=== PATIENT | male | born 1965 | race Caucasian/White ===

== ENCOUNTER 2016-12-02 12:52 | Outpatient (CLI) | payer OTHER ==
--- NOTE | 2016-12-02 15:43 | CT ---
NONCONTRAST CT OF THE CERVICAL SPINE 12/02/16 HISTORY: History of cervical spinal fracture. COMPARISON: Prior exam dated 10/09/16. FINDINGS: There is a small mucous retention cyst within the right maxillary sinus. Mastoid air cells are clear . Irregularity involving the right C5 lamina is unchanged from the comparison CT dated 10/09/16. No christian reciable edema was noted within this region on the comparison MRI of the cervical spine dated 7. This is likely reflective of either chronic injury or possibly exuberant osteophytosis from the a djacent C5-6 facet complex. No acute change is evident. The lung apices are clear. There is advanced disc degenerative disease at C6-7. The broad based disc osteophyte complex does induce at least mild central canal narrowing and moderate left neural julia inal narrowing. IMPRESSION: No appreciable change seen involving the cortical irregularity involving the right C5 lamina. Suspec payal on the prior CT to reflect a fracture; however, on a subsequent MR examination dated 10/09/16, th ere was no appreciable edema noted within this region. The cortical irregularity involving the C5 la adolfo is stable. This may reflect sequela of remote trauma or possibly exuberant osteophyte formation from the adjacent C5-6 articular pillar. POS: [facility]
== END 2016-12-02 12:53 | disposition home or self-care (01) ==
LOC: MADCT 12:52
PROVIDERS: ATTEND Neurological Surgery
DX: S12.9XXA Fracture of neck, unspecified, initial encounter (principal)
CPT/HCPCS: 72125

== ENCOUNTER 2018-02-28 10:08 | Emergency (ER) | payer OTHER ==
[~2018-02-28 10:08] MED LIST: Iopamidol 370 76% 100 ML VIAL ONE
[2018-02-28 10:33] LABS: #Basophils 0.1 thou/uL (0.0-0.2); #Lymphocytes 2.4 thou/uL (1.20-3.40); #Monocytes 0.4 thou/uL (0.11-0.59); %Basophils 1.4 % (0.0-1.0); %Eosinophils 12.5 % (0.0-10.0); %Lymphocytes 30.6 % (21.0-51.0); %Neutrophils 50.6 % (42.0-75.0); Hemoglobin 13.6 g/dL (14.0-18.0); Mean Corpuscular HGB CONC 34.5 g/dL (32.0-36.0); Mean Corpuscular Hemoglobin 30.1 pg (27.0-31.0); Mean Corpuscular Volume 87.2 fL (78.0-98.0); Mean Platelet Volume 7.4 fL (7.4-10.4); Platelet Count 245 thou/uL (130-400); RBC Distribution Width 10.8 % (11.5-14.5); Red Blood Cell (RBC) Count 4.54 mill/uL (4.70-6.10)
--- NOTE | 2018-02-28 10:52 | RAD ---
RADIOGRAPH CHEST 2 VIEWS: HISTORY: 52-year-old male with cough. FINDINGS: There is no air space density, pulmonary edema, pleural effusion, pneumothorax, or cardiomegaly. IMPRESSION: No acute cardiopulmonary findings. jn [] POS: [facility]
[2018-02-28 10:54] LABS: ALT (SGPT) 23 U/L (8-55); AST (SGOT) 16 U/L (5-34); Albumin 3.9 g/dL (3.5-5.0); Alkaline Phosphatase 38 U/L (40-150); Anion Gap 14 mmol/L (10-20); BUN (Urea Nitrogen) 14 mg/dL (8.4-25.7); Bilirubin, Total 0.5 mg/dL (0.2-1.2); Calc. Creatinine Clearance 0 mL/min (70-130); Calcium 8.8 mg/dL (7.8-10.44); Carbon Dioxide 22 mmol/L (22-29); Chloride 106 mmol/L (98-107); Estimated GFR-MDRD Greater than 90; Globulin 2.8 g/dL (2.4-3.5); Glucose 133 mg/dL (70-105); Potassium 3.8 mmol/L (3.5-5.1); Protein, Total 6.7 g/dL (6.0-8.3); Sodium 138 mmol/L (136-145); Troponin I Less than 0.010 ng/mL (< 0.028)
[2018-02-28 11:37] LABS: Bilirubin Negative (Negative); Blood, Urine Negative (Negative); Clarity Clear (Clear); Glucose, Urine (Dipstick) Negative (Negative); Leukocyte Negative (Negative); Nitrite Negative (Negative); Protein, Urine (Dipstick) Negative (Neg-Trace); Specific Gravity, Urine 1.025 (1.005-1.030); Urobilinogen 0.2 mg/dL (0.2-1.0)
--- NOTE | 2018-02-28 13:05 | CT ---
CT ANGIO OF CHEST WITH CONTRAST: Multiple axial tomograms were obtained through the chest with IV enhancement following pulmonary ronda o protocol with multiplanar reconstruction and 3D post processing. INDICATION: Syncope. Coughing with syncope. Elevated D-dimer. FINDINGS: Pulmonary arteries show adequate opacification. No evidence of pulmonary embolus identified. Thorac ic aorta is unremarkable. No dissection. Lung fierro are clear. No infiltrate. Mediastinum unremarkable. Images through the upper abdomen u nremarkable. IMPRESSION: 1. No evidence of pulmonary embolus. 2. No acute lung process identified. POS: [facility]
== END 2018-02-28 12:38 | disposition short-term general hospital (02) ==
LOC: MADERS 10:08
DX: R55 Syncope and collapse (principal); R74.0 Nonspecific elevation of levels of transaminase and lactic acid dehydrogenase [LDH]; E11.9 Type 2 diabetes mellitus without complications; E78.5 Hyperlipidemia, unspecified; I10 Essential (primary) hypertension
CPT/HCPCS: 36415; 36416; 71046; 71275; 80053; 81003; 82553; 83605; 83880; 84484; 85025; 85379; 93005; 94760

== ENCOUNTER 2018-03-25 09:01 | Emergency (ER) | payer OTHER ==
--- NOTE | 2018-03-25 10:36 | CT ---
NONCONTRAST CT HEAD: DATE: 03/25/18. HISTORY: Head injury. COMPARISON: 10/09/16. FINDINGS: There is no evidence of a hemorrhage, acute infarction, mass effect, or midline shift. Ventricular s ystem is normal in size, shape, and position. There is mucous retention cyst again seen in the right maxillary antrum. Mastoid air cells are clear. No calvarial fracture is identified. IMPRESSION: No acute intracranial abnormality is demonstrated. POS: [facility]
--- NOTE | 2018-03-25 10:38 | CT ---
CT CERVICAL SPINE WITHOUT CONTRAST: HISTORY: Injury. Pain. COMPARISON: 12/02/16. FINDINGS: No craniocervical dissociation. Lateral masses of C1 and C2 as well as the facets have appropriate a rticulation. Intact odontoid process. Cervical vertebral body height is maintained. There is no fracture. No malalignment on the sagittal reformatted images. There is moderate degenerative disk disease at C6-C7. There is associated mode rate central canal stenosis and severe left foraminal narrowing. Evaluation of the contents of the c entral canal stenosis and neural foramen are limited by technique. There is no prevertebral soft tissue swelling. Visualized soft tissue neck structures, upper mediast inum, and lung apices are unremarkable. IMPRESSION: 1. No cervical spine fracture. 2. Stable degenerative change at C6-C7. POS: [facility]
--- NOTE | 2018-03-25 10:42 | CT ---
CT THORACIC SPINE WITHOUT CONTRAST: HISTORY: Injury. Pain. COMPARISON: Thoracic spine CT From September 2016. FINDINGS: There is a very subtle superior end plate depression deformity at T4 which appears new from the amil[facility] ris examination, although is not definitely acute. The remainder of the vertebral body heights wer e maintained. The T4 compression deformity superior end plate involves 20% of the end plate surface area and the anterior superior vertebral body is intact. The paravertebral soft tissues are unremarkable. No hematoma. Visualized ribs are unremarkable. The sinus processes are intact. IMPRESSION: Very minimal superior end plate height loss of T4 involving 20% of the surface area depressed less th an 2 mm. This is new from the 2017 examination, although not definitely acute. POS: [facility]
--- NOTE | 2018-03-25 10:42 | CT ---
NONCONTRAST CT LUMBAR SPINE: 03/25/2018 HISTORY: Low back injury. COMPARISON: 10/09/2016 FINDINGS: The vertebral body heights are within normal limits. No fracture or subluxation is seen involving th e lumbar spine. Schmorl's nodes are seen at multiple levels of the lower thoracic, as well as involv ing the lumbar vertebral bodies. Osteophytes are seen anteriorly, involving the lower lumbar spine. There is stable narrowing of the L3-L4 intervertebral disk space. There is no significant central c anal or neural foraminal narrowing present throughout the lumbar spine. The prevertebral soft tissues demonstrate a normal appearance. Minimal vascular calcifications are seen in the abdominal aorta. IMPRESSION: Degenerative changes in the lumbar spine, but no fracture or subluxation is seen. CT lumbar spine is stable, compared to a study on 10/09/2016. POS: [facility]
--- NOTE | 2018-03-25 10:43 | RAD ---
ONE VIEW PELVIS: HISTORY: Injury. Pain. COMPARISON: None. FINDINGS: The sacral ala are intact. The sacroiliac joints are patent and symmetric. The bony pelvis is intac t. Contour of both femoral heads are maintained on this single projection. Limited evaluation of fe moral necks due to patient position. IMPRESSION: Unremarkable one view pelvis. POS: [facility]
--- NOTE | 2018-03-25 10:46 | RAD ---
RADIOGRAPH CHEST 1 VIEW: HISTORY: A 52-year-old male, status post acute traumatic injury to the chest. FINDINGS: There are no air space densities, pulmonary edema, pneumothorax, or cardiomegaly. The lateral costop hrenic angles are sharp. IMPRESSION: No acute cardiopulmonary findings. frances [] POS: [facility]
--- NOTE | 2018-03-25 10:46 | RAD ---
LEFT SHOULDER THREE VIEWS: History: Injury. Comparison: None. FINDINGS: No acute displaced fracture or malalignment. Mild degenerative disease of the acromioclavicular joint . Visualized ribs are unremarkable. IMPRESSION: No acute abnormality. POS: [facility]
== END 2018-03-25 11:05 | disposition home or self-care (01) ==
LOC: MADERS 09:01
DX: S22.049A Unspecified fracture of fourth thoracic vertebra, initial encounter for closed fracture (principal); V89.2XXA Person injured in unspecified motor-vehicle accident, traffic, initial encounter
CPT/HCPCS: 70450; 71045; 72125; 72128; 72131; 72170

== ENCOUNTER 2018-03-31 11:26 | Emergency (ER) | payer OTHER ==
--- NOTE | 2018-03-31 12:36 | RAD ---
RIGHT FOOT RADIOGRAPHS THREE VIEWS: 03/31/2018 PROVIDED CLINICAL HISTORY: Right foot pain status post injury. COMPARISON: 08/03/2014 FINDINGS: No evidence for fracture or other acute osseous abnormality. If there is persistent clinical concern , conservative management and follow-up imaging are advised. IMPRESSION: As above. POS: [facility]
[2018-03-31] MEDS ORDERED: predniSONE 20 MG TAB ONE (13:28)
== END 2018-03-31 14:10 | disposition home or self-care (01) ==
LOC: MADERS 11:26
DX: M72.2 Plantar fascial fibromatosis (principal); E11.9 Type 2 diabetes mellitus without complications; E78.5 Hyperlipidemia, unspecified; I10 Essential (primary) hypertension; F17.210 Nicotine dependence, cigarettes, uncomplicated; Z79.84 Long term (current) use of oral hypoglycemic drugs; Z79.899 Other long term (current) drug therapy
CPT/HCPCS: J7506